=== PATIENT | female | born 1985 | race Hispanic/Latino ===

== ENCOUNTER 2019-05-07 12:06 | Emergency (ER) | payer SELFPAY ==
[2019-05-07] MEDS ORDERED: Ondansetron PF 4 MG/2 ML Vial ONE (12:39)
[2019-05-07] MEDS ORDERED: Dicyclomine 20 MG TAB ONE (12:39)
[2019-05-07 12:50] LABS: #Eosinphils 0.1 thou/uL (0.0-0.7); #Lymphocytes 1.2 thou/uL (1.20-3.40); #Monocytes 0.6 thou/uL (0.11-0.59); %Basophils 0.1 % (0.0-1.0); %Eosinophils 0.7 % (0.0-10.0); %Lymphocytes 10.1 % (21.0-51.0); %Monocytes 4.7 % (0.0-10.0); %Neutrophils 84.3 % (42.0-75.0); Hemoglobin 13.6 g/dL (12.0-16.0); Mean Corpuscular HGB CONC 34.7 g/dL (32.0-36.0); Mean Corpuscular Hemoglobin 32.2 pg (27.0-31.0); Mean Corpuscular Volume 92.9 fL (78.0-98.0); Mean Platelet Volume 7.8 fL (7.4-10.4); Platelet Count 263 thou/uL (130-400); Red Blood Cell (RBC) Count 4.21 mill/uL (4.20-5.40); White Blood Cell (WBC) Count 11.8 thou/uL (4.8-10.8)
[2019-05-07 13:11] LABS: ALT (SGPT) 33 U/L (8-55); AST (SGOT) 21 U/L (5-34); Alkaline Phosphatase 63 U/L (40-110); Anion Gap 12 mmol/L (10-20); BUN (Urea Nitrogen) 5 mg/dL (7.0-18.7); Bilirubin, Total 0.5 mg/dL (0.2-1.2); Calc. Creatinine Clearance 0 mL/min (70-130); Calcium 8.9 mg/dL (7.8-10.44); Carbon Dioxide 22 mmol/L (22-29); Chloride 107 mmol/L (98-107); Estimated GFR-MDRD Greater than 90; Globulin 2.5 g/dL (2.4-3.5); Glucose 87 mg/dL (70-105); Lipase 14 U/L (8-78); Potassium 3.5 mmol/L (3.5-5.1); Protein, Total 6.5 g/dL (6.0-8.3); Sodium 137 mmol/L (136-145)
[2019-05-07 13:21] LABS: Bacteria/HPF None Seen HPF (None Seen); Bilirubin Negative (Negative); Blood, Urine Trace (Negative); Clarity Clear (Clear); Glucose, Urine (Dipstick) Normal (Negative); Leukocyte Negative Leu/uL (Negative); Nitrite Negative (Negative); Protein, Urine (Dipstick) Negative (Neg-Trace); RBC/HPF 0-3 HPF (0-3); Urobilinogen Normal mg/dL (Less than 2); WBC/HPF 0-3 HPF (0-3)
--- NOTE | 2019-05-07 14:53 | MRI ---
MRI OF THE ABDOMEN WITHOUT CONTRAST: 05/07/19 INDICATION: 34-year-old female, G3, P2, at 15 weeks with right sided abdominal cramping since 0200 hour s this morning that has been intermittent since. The patient reports nausea, vomiting, but denies julian rrhea. The patient denies vaginal discharge or bleeding. COMPARISON: None. TECHNIQUE: Multiplanar and multisequence MRI images were obtained in the abdomen utilizing appendicitis protocol . No IV contrast was administered. No comparisons are available. FINDINGS: A normal appendix is seen projecting along the medial margin of the cecum on images 15 through 13 of series 3. There is no free fluid present within the right lower quadrant of the abdomen. There is an intrauterine gestation with vertex presentation. The placenta is anterior in location and appears to be margin. The placenta abuts but does not completely cover the internal os. No hydronephrosis is dem onstrated. No enlarged lymph nodes are noted. There are appropriate flow voids present within the reg ion of the gonadal veins. The visualized small and large bowel are normal caliber. No free fluid is e vident within the pelvis. No bone marrow signal abnormality is grossly evident. IMPRESSION: 1. No evidence to suggest the presence of appendicitis. No MR explanation for the patient's righ t lower quadrant abdominal pain. 2. Findings suspicious for marginal placenta. Follow-up ultrasound imaging is recommended. POS: CET
== END 2019-05-07 15:52 | disposition home or self-care (01) ==
LOC: ERS 12:06
DX: O99.612 Diseases of the digestive system complicating pregnancy, second trimester (principal); K21.9 Gastro-esophageal reflux disease without esophagitis; O99.89 Other specified diseases and conditions complicating pregnancy, childbirth and the puerperium; R11.0 Nausea; Z3A.15 15 weeks gestation of pregnancy
CPT/HCPCS: 74181; 80053; 81003; 81015; 83690; 85025; 87086; 96374; J2405

== ENCOUNTER 2019-09-17 11:16 | Day surgery (SDC) | payer MEDICAID ==
[2019-09-17 11:50] VITALS: BMI 32.3
--- NOTE | 2019-09-17 12:16 | ULT ---
Exam: Nonstress biophysical profile HISTORY: Nonreactive strip in office. COMPARISON: None TECHNIQUE: Nonstress biophysical profile is 4 FINDINGS: Single intrauterine gestation. Presentation: Vertex Cervix: Limited evaluation due to shadowing heart tones: 152 bpm Amniotic fluid index 5.5 cm Nonstress biophysical profile: tone 2 breathing 2 movements 2 Amniotic fluid 2 Total score 8 out of 8 IMPRESSION: 1. Oligohydramnios 2. Nonstress biophysical profile with a total score 8 out of 8.
== END 2019-09-17 13:14 | disposition home or self-care (01) ==
LOC: L&D/OP 11:16
PROVIDERS: ATTEND Family Medicine
DX: O41.03X0 Oligohydramnios, third trimester, not applicable or unspecified (principal); Z3A.33 33 weeks gestation of pregnancy
CPT/HCPCS: 59025; 76819; 99282

== ENCOUNTER 2019-10-19 21:34 | Inpatient (IN) | payer MEDICAID, OTHER ==
[2019-10-19] MEDS: Lactated Ringer's 1,000 ML IV SCH (22:00)
[2019-10-19 22:20] VITALS: BMI 30.8
[2019-10-19] MEDS ORDERED: Promethazine HCl 25 MG/ML VIAL IM PRN (22:32)
[2019-10-19] MEDS ORDERED: hydrALAZINE 20 MG/ML VIAL SLOW IVP PRN (22:32)
[2019-10-19] MEDS ORDERED: Lidocaine 1% (PF) 30 ML VIAL SC PRN (22:32)
[2019-10-19] MEDS ORDERED: Butorphanol Tartrate 1 MG/ML VIAL SLOW IVP PRN (22:32)
[2019-10-19] MEDS ORDERED: Ondansetron PF 4 MG/2 ML Vial IVP PRN (22:32)
[2019-10-19] MEDS ORDERED: Ibuprofen 800 MG TAB PO PRN (22:32)
[2019-10-19] MEDS ORDERED: HYDROcodone/Acetaminophen 5/325 mg Tablet PO PRN ×2 (22:32)
--- NOTE | 2019-10-19 22:34 | PDOC.BPN ---
- Brief Progress Note Courtesy orders placed for . Requested oxytocin per
[2019-10-19] MEDS ORDERED: NS w/ Oxytocin 10 units 500 ML IV SCH ×2 (22:45)
[2019-10-19 22:56] LABS: Hemoglobin 13.2 g/dL (12.0-16.0); Mean Corpuscular HGB CONC 34.8 g/dL (32.0-36.0); Mean Corpuscular Hemoglobin 32.8 pg (27.0-31.0); Mean Corpuscular Volume 94.3 fL (78.0-98.0); Mean Platelet Volume 9.1 fL (7.4-10.4); Platelet Count 161 thou/uL (130-400); RBC Distribution Width 12.7 % (11.5-14.5); Red Blood Cell (RBC) Count 4.01 mill/uL (4.20-5.40); White Blood Cell (WBC) Count 8.7 thou/uL (4.8-10.8)
[2019-10-19 23:36] LABS: Syphilis Antibody Nonreactive (Nonreactive); Syphilis Antibody Index 0.04 S/CO (<1.00 Non-Reactive)
[2019-10-20 01:03] LABS: HBSAg Index 0.19 S/CO (0-0.99); HIV (1/2) Antibody/Antigen Non-Reactive (NonReactive); Hep B Surf Ag Non-Reactive S/CO (NonReactive)
[2019-10-20] MEDS: Lactated Ringer's 1,000 ML IV SCH (01:45)
[2019-10-20 12:56] LABS: SARS-CoV-2 MS2 Positive; SARS-CoV-2 N Gene Negative; SARS-CoV-2 S Gene Negative; SARS-CoV-2 by NAA Not Detected (NotDetected); SARS-CoV-2 orf1ab Negative
[2019-10-20] MEDS: NS / Oxytocin 40 units/1000ml 1,000 ML IV PRN ×2 (15:34→17:12)
[2019-10-20] MEDS ORDERED: Ondansetron PF 4 MG/2 ML Vial IVP PRN (17:12)
[2019-10-20] MEDS ORDERED: diphenhydrAMINE 25 MG CAP PO PRN (17:12)
[2019-10-20] MEDS ORDERED: Lanolin Ointment 7 GM TUBE TOP PRN (17:12)
[2019-10-20] MEDS ORDERED: Adacel (T-DAP) 0.5 ML SYRINGE IM ONE (17:12)
[2019-10-20] MEDS ORDERED: HYDROcodone/Acetaminophen 5/325 mg Tablet PO PRN (17:12)
[2019-10-20] MEDS ORDERED: NS / Oxytocin 40 units/1000ml 1,000 ML IV SCH (17:12)
[2019-10-20] MEDS ORDERED: Bisacodyl 10 MG SUPP PR PRN (17:12)
[2019-10-20] MEDS ORDERED: Milk Of Magnesia 30 ML UDCUP PO PRN (17:12)
[2019-10-20] MEDS ORDERED: Benzocaine-Menthol 82.5 ML CAN TOP PRN (17:12)
[2019-10-20] MEDS: Ferrous Sulfate 325 MG TAB PO SCH (18:49)
[2019-10-20] MEDS: hydrALAZINE 20 MG/ML VIAL SLOW IVP SCH (18:50)
[2019-10-20] MEDS: HYDROcodone/Acetaminophen 5/325 mg Tablet PO PRN (19:47)
[2019-10-20] MEDS: Docusate Calcium (SURFAK) 240 MG CAP PO SCH (21:37)
[2019-10-20] MEDS: Ibuprofen 800 MG TAB PO SCH (21:37)
[2019-10-21] MEDS: Ibuprofen 800 MG TAB PO SCH ×3 (06:04→20:55)
[2019-10-21] MEDS: Lactated Ringer's 1,000 ML IV SCH (07:17)
[2019-10-21] MEDS: Ferrous Sulfate 325 MG TAB PO SCH ×2 (07:23→15:59)
[2019-10-21] MEDS: Docusate Calcium (SURFAK) 240 MG CAP PO SCH ×2 (08:48→20:55)
[2019-10-21] MEDS: HYDROcodone/Acetaminophen 5/325 mg Tablet PO PRN (08:55)
[2019-10-21] MEDS ORDERED: Prenatal Vitamin 1 TAB PO SCH (09:00)
[2019-10-21 21:50] VITALS: BP 142/68; TEMP 98.1
== END 2019-10-21 21:40 | disposition home or self-care (01) | DRG 807 ==
LOC: L&D/OP 21:34 → L&D 10-20 02:02 → 3SE 10-20 17:44
PROVIDERS: ADMIT Family Medicine; ATTEND Family Medicine
PROC: 10E0XZZ Delivery of Products of Conception, External Approach (ICD-10-PCS; principal; 2019-10-19)
PROC: 0KQM0ZZ Repair Perineum Muscle, Open Approach (ICD-10-PCS; 2019-10-19)
PROC: 6A550ZT Pheresis of Cord Blood Stem Cells, Single (ICD-10-PCS; 2019-10-19)
DX: O76 Abnormality in fetal heart rate and rhythm complicating labor and delivery (principal); Z37.0 Single live birth; O24.429 Gestational diabetes mellitus in childbirth, unspecified control; O70.1 Second degree perineal laceration during delivery; Z3A.38 38 weeks gestation of pregnancy
CPT/HCPCS: 36415; 85027; 86780; 86850; 86900; 86901; 87340; 87389; 87635; 90715; 99285; J0595; J2590; U0003

== ENCOUNTER 2021-09-04 21:55 | Emergency (ER) | payer MEDICAID, SELFPAY ==
[~2021-09-04 21:55] MED LIST: Iopamidol-370 76% 500 ML 1 ML ONE
[2021-09-04 23:11] LABS: #Eosinphils 0.1 thou/uL (0.0-0.7); #Monocytes 0.6 thou/uL (0.11-0.59); #Neutrophils 4.1 thou/uL (1.40-6.50); %Basophils 0.5 % (0.0-1.0); %Eosinophils 1.2 % (0.0-10.0); %Lymphocytes 38.6 % (21.0-51.0); %Monocytes 7.8 % (0.0-10.0); %Neutrophils 51.9 % (42.0-75.0); Hemoglobin 13.5 g/dL (12.0-16.0); Mean Corpuscular HGB CONC 34.1 g/dL (32.0-36.0); Mean Corpuscular Hemoglobin 32.4 pg (27.0-31.0); Mean Platelet Volume 7.2 fL (7.4-10.4); Platelet Count 277 thou/uL (130-400); Red Blood Cell (RBC) Count 4.18 mill/uL (4.20-5.40); White Blood Cell (WBC) Count 7.8 thou/uL (4.8-10.8)
[2021-09-04 23:21] LABS: Pregs Control Background? CLEAR/WHITE (CLR/WHITE); Pregs Control Bar Appear? YES (CONTROL BAR)
[2021-09-04 23:23] LABS: BHCG - Serum Negative (NEGATIVE)
[2021-09-04 23:33] LABS: ALT (SGPT) 20 U/L (8-55); AST (SGOT) 12 U/L (5-34); Albumin 4.6 g/dL (3.5-5.0); Alkaline Phosphatase 67 U/L (40-110); Anion Gap 14 mmol/L (10-20); BUN (Urea Nitrogen) 9 mg/dL (7.0-18.7); Bilirubin, Total 0.3 mg/dL (0.2-1.2); Calc. Creatinine Clearance 0 mL/min (70-130); Calcium 9.6 mg/dL (7.8-10.44); Carbon Dioxide 26 mmol/L (22-29); Chloride 103 mmol/L (98-107); Estimated GFR 102; Globulin 3.1 g/dL (2.4-3.5); Glucose 89 mg/dL (70-105); Protein, Total 7.7 g/dL (6.0-8.3); Sodium 139 mmol/L (136-145)
[2021-09-05 00:29] LABS: Bilirubin Negative (Negative); Blood, Urine Negative (Negative); Clarity Clear (Clear); Glucose, Urine (Dipstick) Normal (Negative); Ketone, Urine Negative (Negative); Leukocyte 250 Leu/uL (Negative); Nitrite Negative (Negative); Protein, Urine (Dipstick) Negative (Neg-Trace); RBC/HPF 0-3 HPF (0-3); Specific Gravity, Urine 1.012 (1.002-1.036); Urobilinogen Normal mg/dL (Less than 2); pH, Urine 6.5 (5.0-9.0)
[2021-09-05] MEDS ORDERED: Ondansetron PF 4 MG/2 ML Vial ONE (00:31)
[2021-09-05] MEDS ORDERED: Ketorolac Tromethamine 30 MG/ML VIAL ONE (00:31)
[2021-09-05 00:35] LABS: Bacteria/HPF 1+ HPF (None Seen)
== END 2021-09-05 01:10 | disposition home or self-care (01) ==
LOC: ERS 21:55
DX: N39.0 Urinary tract infection, site not specified (principal)
CPT/HCPCS: 36415; 74177; 80053; 81003; 81015; 83690; 84703; 85025; J1885; J2405; Q9967